=== PATIENT | male | born 1980 | race Caucasian/White ===

== ENCOUNTER → 2019-12-17 08:06 | Outpatient (CLI) | payer BC, SELFPAY ==
--- NOTE | ~2019-12-17 | CT_ITS ---
EXAMINATION: CT abdomen wo con DATE: 12/17/2019 08:22 INDICATION: Recurrent incisional hernia; status post hernia repair. TECHNIQUE: Computed tomography (CT) of the abdomen was performed without intravenous contrast. Automa mary exposure control and iterative reconstruction technique were employed. Exam dose: 824.01 mGy-cm total exam DLP. COMPARISON: None. FINDINGS: No infiltrate or consolidation or mass lesion is evident at the included lung bases. Normal heart size. No pericardial or pleural effusion. The liver, gallbladder, bile ducts, pancreas, pancreatic duct, spleen, and adrenal glands and kidneys are unremarkable on this limited noncontrast examination. No bile duct or pancreatic duct dilatation . No urinary tract calculus or hydroureteronephrosis. Normal caliber of the abdominal aorta. No intraperitoneal or retroperitoneal mass lesion or adenopath y or ascites. Status post appendectomy. There is diverticulosis of the splenic flexure and descending colon, without evidence of diverticulit is. No bowel obstruction, bowel wall thickening, pneumatosis or intraperitoneal free air is detected. There is evidence of one or more very small supraumbilical ventral abdominal wall defects with small fat-containing hernia(s). No bowel herniation. Bilateral L5 pars interarticularis defects. Severe degenerative disc disease at L4-5. No suspicious osteolytic or osteoblastic lesions are noted. IMPRESSION: 1 or more small midline ventral supraumbilical abdominal wall defects with associated sm all fat containing herniation(s) Bilateral L5 pars interarticularis defects Reviewed, dictated and finalized at [facility]. Reviewed, dictated and finalized at [facility]. IMPRESSION: 1 or more small midline ventral supraumbilical abdominal wall defe cts with associated small fat containing herniation(s) Bilateral L5 pars interarticularis defects
== END ==
PROVIDERS: Visit Provider Surgery
DX: K43.2 Incisional hernia without obstruction or gangrene (principal)
CPT/HCPCS: 74150

== ENCOUNTER 2019-12-22 04:50 | Outpatient (CLI) | payer BC, SELFPAY ==
[2019-12-23 22:33] LABS: SARS-CoV-2 RNA PCR Negative
== END 2019-12-22 04:51 | disposition home or self-care (01) ==
LOC: ANHCOVIDDT 04:50
PROVIDERS: Visit Provider Surgery
DX: Z01.812 Encounter for preprocedural laboratory examination (principal); Z11.59 Encounter for screening for other viral diseases
CPT/HCPCS: 87635; C9803; U0003

== ENCOUNTER 2019-12-22 09:08 | Outpatient (CLI) | payer BC, SELFPAY ==
--- NOTE | 2019-12-22 09:10 | ECG_ITS ---
Measurements Intervals [place] Rate: 81 P: 0 MN: 152 QRS: -12 QRSD: 96 T: 14 QT: 333 QTc: 388 Interpretive Statements SINUS RHYTHM BORDERLINE R WAVE PROGRESSION, ANTERIOR LEADS BORDERLINE T WAVE ABNORMALITY- INFERIOR LEADS BASELINE ARTIFACT- I, II, III, AVR, AVL, AVF, V3 BORDERLINE ECG Electronically Signed On 12-22-2019 9:36:07 CDT by Deandre Painter D.O.
[2019-12-22 09:47] LABS: Blood Urea Nitrogen 11 mg/dL (9-20); Calcium 9.6 mg/dL (8.4-10.2); Carbon Dioxide 24 mmol/L (22-30); Chloride 105 mmol/L (98-107); Estimated Glomerular Filt Rate > 60; Glucose 101 mg/dL (75-110); Sodium 137 mmol/L (137-145)
== END 2019-12-22 09:09 | disposition home or self-care (01) ==
LOC: ANHSURGERY 09:10
PROVIDERS: Anesthesiology; PCP Family Medicine Sports Medicine; Visit Provider Surgery
DX: K43.2 Incisional hernia without obstruction or gangrene (principal); I10 Essential (primary) hypertension; R94.31 Abnormal electrocardiogram [ECG] [EKG]
CPT/HCPCS: 36415; 80048; 86850; 86900; 86901; 93005

== ENCOUNTER 2019-12-24 02:05 | Day surgery (SDC) | payer BC, SELFPAY ==
[2019-12-15 14:44] VITALS: BMI 37.3
--- NOTE | 2019-12-23 12:48 | P.PNAN_ITS ---
Anes - Initial Pre Proc Eval Procedure: Operation Date: 12/24/19 10:30 Proposed Procedures p Laparoscopic Recurrent Incisional Hernia Repair With Mesh, DaVinci Assisted - Jorge Romero DO Date/Time: 12/23/19 12:48 Surgeon: Jorge Romero DO Pre Op Diagnosis: Recurrent Incisional Hernia Patient Data Age: 39 Gender: M Height: 1.78 m Weight: 118 kg Allergies Allergy/AdvReac Type Severity Reaction Status Date / Time Penicillins Allergy Severe stop Verified 12/15/19 14:45 breathing lisinopril Allergy Mild Cough Verified 12/24/19 08:24 adhesive AdvReac Intermediate hives Verified 12/24/19 08:24 Home Medications Medication Instructions Recorded Confirmed Type amlodipine 5 mg tablet 5 mg PO DAILY 12/10/19 12/24/19 History fenofibrate nanocrystallized 145 145 mg PO DAILY 12/10/19 12/24/19 History mg tablet hydrochlorothiazide 25 mg tablet 25 mg PO DAILY 12/10/19 12/24/19 History losartan 100 mg tablet 100 mg PO DAILY 12/10/19 12/24/19 History Patient hx anesthesia problems: none Family hx anesthesia problems: none PMFSH Social History Social History Smoking packs per day: 0.5 Smoking cigarettes per day: 10.0 Years smoked: 15 Smoking pack-years: 7.50 Smoking status: Former smoker Tobacco type: cigarettes Smokeless tobacco user: chewing tobacco Second hand tobacco smoke exposure: No Alcohol intake: current Drinks per week: 10 Substance use: never Substance use type: does not use Living arrangements: with friend(s) 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 Gender identity (if verbalized by the patient): Male Spiritual care concerns: No Anes - Eval Final PreProcedure Day of Procedure 12/23/19 12:48 Patient weight: obese Heart: regular rate and rhythm Lungs: clear to auscultation and normal air movement Airway: Mallampati scale class II Neurological: alert and oriented Last oral intake: >/= 8 hours ASA classification: III Emergent: no Anesthetic plan: proceed Anesthesia type and monitoring: general ETT and standard monitoring Informed Consent: The patient's anesthetic plan and its attendant risks and benefits were discussed with the patient/family/POA. Questions were solicited and answers provided to the satisfaction of the patient/family/POA.
[2019-12-24] VITALS (7 sets, daily range): BP systolic 106–144; BP diastolic 65–97; PULSE 86–104; RESP 13–20; TEMP 36.5–36.9; O2SAT 95–98
[2019-12-24] MEDS: ACETAMINOPHEN 500 MG TABLET 1000 MG PO (08:54)
[2019-12-24] MEDS: LACTATED RINGERS 1,000 ML 30 ML IV CONT ×2 (08:54→13:05)
[2019-12-24] MEDS: KETOROLAC 15 MG/ML VIAL (*BKC) IV PUSH (08:57)
--- NOTE | 2019-12-24 09:34 | WPDHPUPDATE1 ---
History and Physical Update Update Date/Time: 12/24/19 09:34 History and Physical has been reviewed, including an updated exam of the patient. There are NO changes in the patient's condition. Risks, benefits, and alternatives have been discussed and questions answered. Patient agrees to proceed with procedure.
[2019-12-24] MEDS: CLINDAMYCIN 900 MG/NS 50 ML 900 MG/50 ML PIGGYBACK 50 MG IVPB (10:01)
--- NOTE | 2019-12-24 12:52 | PM.PROC ---
Procedure Note - Detailed Date of procedure: 12/24/19 Pre-op diagnosis: Recurrent Incisional Hernia Post-op diagnosis: same Procedure performed: Laparoscopic Recurrent ventral hernia repair with Prolene Soft mesh, da Esther assisted Description of procedure: Procedure as well as risks, benefits, and alternatives were discussed with the patient. Written consent was obtained and placed in chart prior to procedure. Patient was brought back to surgical suite. he was placed supine on operating table. Time-out was done to confirm patient and procedure. he was then intubated by the anesthesia department. A bump was placed under his left hip, and the bed was flexed slightly to extend the space between his costal margin and iliac crest. his abdomen was prepped and draped in sterile fashion using chlorhexidine prep. A 5 millimeter incision was made in the left upper quadrant, and a 5 millimeter Optiview trocar was advanced through the abdominal layers under direct visualization. Once inside the abdominal cavity, carbon dioxide insufflation was used to create a pneumoperitoneum. his abdomen was inspected. An 8 millimeter incision was made in the left lower quadrant, and an 8 millimeter robotic trocar was placed under direct visualization. Another 8 millimeter incision was made in the left lateral abdomen, and an 8 millimeter robotic trocar was placed under direct visualization. Exparel was infiltrated along the lateral abdominal crawley to perform a transversus abdominis plane block bilaterally. The 5 millimeter port was removed, the incision was extended to 12 millimeters, and a 12 millimeter air seal port was placed under direct visualization. A Bud-Bennett cone was also used to place an 0-Vicryl simple interrupted suture at this trocar site. The robotic arms were brought up to the patient's bedside and secured to the ports. The camera and instruments were inserted, and I then moved over to the robotic console and took control of the camera and instruments. After careful thorough inspection of the abdominal cavity, I began my dissection at the hernia. the adhesions around the prior hernia repair were taken down using hook electrocautery and blunt dissection. A preperitoneal plane was then created by scoring the peritoneum along the left lateral abdominal wall far enough away to allow for a mesh repair. The preperitoneal pocket was then carefully developed around the hernia defect and the hernia sac was reduced from within the hernia.. I then measured the hernia size. The hernia measured 1 cm. The fascia was closed using an 0-Stratafix running suture in a transverse fashion. A 10 cm Prolene soft mesh was then placed within the preperitoneal pocket. This was oriented vertically with the mesh centered on the hernia defect. The mesh was then secured at the superior, inferior, and lateral margins using 3 0 Vicryl simple interrupted sutures. The peritoneum was then closed over the mesh using 3 0 V lock running absorbable suture. There were a couple small holes in the peritoneum that were then closed using 3 0 Vicryl [id number] sutures. The repair was inspected, and one final inspection was made around the abdominal cavity. The robotic instruments were then removed, and the robotic arms were disengaged from the trocars. The ports were then removed under direct visualization, the camera was removed, and the pneumoperitoneum was released. The 0 Vicryl transfascial suture was tied down. The skin of the incisions was then approximated using 4-0 Monocryl subcuticular suture. Exofin glue was then applied on top. The patient was then awakened from anesthesia, extubated, and transferred to recovery. Implants: 10cm round Prolene soft mesh Anesthesia: GETA and local ( Exparel) Surgeon: Jorge Romero DO Estimated blood loss (mL): 5 Drains: No Complications: No immediate complications Condition: stable Disposition: same day Findings: Barrera is a 39
== END 2019-12-24 14:40 | disposition home or self-care (01) ==
PROVIDERS: PCP Family Medicine Sports Medicine; Visit Provider Surgery
PROC: (CPT 49656; principal; 2019-12-24 10:30)
DX: K43.2 Incisional hernia without obstruction or gangrene (principal); Z87.891 Personal history of nicotine dependence; E66.9 Obesity, unspecified; Z68.36 Body mass index [BMI] 36.0-36.9, adult
CPT/HCPCS: 49656; S2900; A9270; C1781; C9290; J0330; J1100; J1885; J2250; J2405; J2704; J2710; J3010; J7030; J7120